=== PATIENT | female | born 1960 | race Caucasian/White ===

== ENCOUNTER 2019-12-27 08:30 | Outpatient (RCR) | payer OTHER, SELFPAY ==
--- NOTE | 2019-11-29 11:46 | PTOPEVAL ---
Thank you for referring this patient to [facility]. Please review, sign, date and return this plan of care BRAYAN. Pt seen for physical therapy this date following bilateral foot surgery. She demonstrates leg weakness, decreased joint range, increased pain and impaired performance with functional mobility. She requires additional skilled PT 3x/wk x 3k to achieve therapy goals. I agree with and certify that the following plan of care is medically necessary. Referring Physician Date Attending Provider: Vinayak Shaikh DPM Referring Provider: JasmeetPT Outpatient Evaluation Start: 11/29/19 08:53 Freq: Status: Active Protocol: Document 11/29/19 08:44 CAP (Rec: 11/29/19 09:47 CAP [id number]) Therapy Assessment Status Assessment Status Assessment Status Evaluation Outpatient Past Medical History Cardiovascular History Hx Hypertension Yes Respiratory History Hx Asthma Yes Gastrointestinal History Hx Other Gastrointestinal Disorders Yes: gastritis Genitourinary History Hx Genitourinary Disorders No Significant History Musculoskeletal History Hx Other Musculoskeletal Disorders Yes: nishant foot surgery Endocrine History Hx Endocrine Disorders No Significant History Evaluation Information Problem Diagnosis right foot surgery Onset 10/04 Cause hammer toe nishant Additional Evaluation Detail bunionectomy 10/04 on right s/p placement of 3 screws on left great toe and 1st ray s/p placement of 4 screws on right great toe and 1st ray She received therapy for right hip bursitis 1 year ago. Subjective Information Pt has undergone 2 surgeries Query Text:As Reported By Patient/ on right foot and 1 surgery on Family left foot for bunionecotomy and great toe/1st ray fusion. She would like her great toe to touch the ground again. She has not had her toes touch the ground since 12/04. STates her great toe looks high . She has never received therapy for her feet following multiple surgeries. She reports limitations with walking, standing and negotiating steps. States she performs passive stretching to her toes. S
--- NOTE | 2019-12-27 09:21 | PTOPEVAL ---
Thank you for referring this patient to [facility]. Please review, sign, date and return this plan of care BRAYAN. Pt has been seen for 9 physical therapy visits to address nishant foot impairments related to foot surgery. She demonstrates progress with LE strength, ankle and toe motion, improved walking endurance on 2 MWT. She is progressing towards her therapy goals. She requires additional skilled therapy 2x/wk x 4 wk to achieve remaining therapy goals and achieve maximal potential and benefit with therapy. I agree with and certify that the following plan of care is medically necessary. Referring Physician Date Attending Provider: Vinayak Shaikh DPM Referring Provider: JasmeetPT Outpatient Evaluation Start: 11/29/19 08:53 Freq: Status: Active Protocol: Document 12/27/19 08:32 CAP (Rec: 12/27/19 09:20 CAP [id number]) Therapy Assessment Status Assessment Status Assessment Status Re-evaluation Outpatient Past Medical History Cardiovascular History Hx Hypertension Yes Respiratory History Hx Asthma Yes Gastrointestinal History Hx Other Gastrointestinal Disorders Yes: gastritis Genitourinary History Hx Genitourinary Disorders No Significant History Musculoskeletal History Hx Other Musculoskeletal Disorders Yes: nishant foot surgery Endocrine History Hx Endocrine Disorders No Significant History Evaluation Information Problem Diagnosis right foot surgery Onset 10/04 Additional Evaluation Detail bunionectomy 10/04 on right s/p placement of 3 screws on left great toe and 1st ray s/p placement of 4 screws on right great toe and 1st ray She received therapy for right hip bursitis 1 year ago. Subjective Information Pt reports she continues to Query Text:As Reported By Patient/ have severe pain of nishant feet Family with standing and walking. Reports the toes on her right foot are moving better. States the scar can be sore and painful at times. She feels more balance with walking. She is able to stand longer for activities, but cont to have pain with increased walking. Denies any problems with steps. Reports no problems with her HEP and consistently performing. Pain Assessment Timing of Pain Assessment Timing of Pain Assessment
--- NOTE | 2020-01-02 08:42 | PCPTNOTE ---
Patient called & cancelled scheduled appointment this date due to insurance change.
--- NOTE | 2020-02-06 12:48 | PCPTNOTE ---
Admitting Provider: Attending Provider: Vinayak Shaikh DPM Patient:Unique Quiles Date of :1960 Patient has not returned for any further treatments since 12/27/2019, therefore she will be discharged from therapy at this time. She was seen for 9 therapy visits from 11/29/19-01/02/20. She cancelled her therapy visits due to insurance changes. The goals have been partially achieved. Thank you for referring this patient to [facility]. Please review, sign, date and return this discharge summary BRAYAN. I have been updated about the patient's current status and I agree with discharge from the above service at this time. Referring Physician Date
== END 2020-02-06 13:55 | disposition home or self-care (01) ==
LOC: ANHPT 08:30
PROVIDERS: PCP Internal Medicine; Visit Provider Podiatrist Foot & Ankle Surgery
DX: Z47.89 Encounter for other orthopedic aftercare (principal)
CPT/HCPCS: 97022; 97110; 97140; 97162; 97530

== ENCOUNTER → 2020-02-06 07:13 | Outpatient (CLI) | payer OTHER, SELFPAY ==
--- NOTE | ~2020-02-06 | MM_ITS ---
EXAMINATION: MM screening favio BI w sharda HISTORY: Screening mammogram TECHNIQUE: Craniocaudal and mediolateral oblique 3-D tomosynthesis images were obtained and synthetic 2-D images were generated. CAD analysis was submitted and interpreted. COMPARISON: 01/31/2019, 01/28/2018,01/21/2017 bilateral digital screening mammogram examinations BREAST PARENCHYMAL COMPOSITION: The breasts are almost entirely fatty. FINDINGS: There is no evidence of suspicious mass, calcification, or architectural distortion to sugg est malignancy in either breast. There has been no suspicious interval change. IMPRESSION: 1. No mammographic evidence of malignancy. 2. Recommend routine screening mammography in one year. BI-RADS Category 1: Negative Reviewed, dictated and finalized at location A.
== END ==
PROVIDERS: Visit Provider Nurse Practitioner
DX: Z12.31 Encounter for screening mammogram for malignant neoplasm of breast (principal)
CPT/HCPCS: 77063; 77067

== ENCOUNTER → 2020-08-02 09:45 | Outpatient (CLI) | payer MEDICARE, SELFPAY ==
--- NOTE | ~2020-08-02 | MR_ITS ---
EXAMINATION: MR knee RT wo con DATE: 08/02/2020 10:51 INDICATION: Right knee pain TECHNIQUE: Magnetic resonance imaging (MRI) of the right knee was performed without intravenous contr ast. Sequences included coronal PD-weighted FSE, coronal PD-weighted FS FSE, sagittal T2-weighted FS E, sagittal PD-weighted FS FSE and axial PD weighted fat saturated FSE. COMPARISON: None. FINDINGS: Medial compartment: Medial meniscus is normal. Partial-thickness chondral fissure without degenerative subarticular casas es along the lateral side of the anterior weightbearing medial femoral condyle. Deep fissuring with m inimal subarticular edema at the posterior weightbearing medial femoral condyle. Lateral compartment: Lateral meniscus is normal. Deep chondral fissures with tiny foci of subarticular edema at the medial side of the lateral tibial plateau extending onto the shoulder the intercondylar eminence and the ju xtaposed anterior weightbearing lateral femoral condyle. Patellofemoral compartment: Deep chondral fissuring and ulceration at the cephalad aspect of the medial patellar facet and patell ar apical ridge complex lateral with minimal subarticular edema. Chondral ulceration and fissuring al chidi the trochlear groove which is deep at the inferior aspect of the greater groove as well as at the inferolateral aspect of the lateral trochlea with associated small central subchondral osteophytes. Ligaments and tendons: Anterior and posterior cruciate ligaments are normal. The medial collateral ligament and fibular michael ateral ligament complex are normal. Patellar tendon is normal. Mild distal quadriceps tendinopathy wi thout discrete tear. The visualized medial and lateral hamstring tendons as well as the iliotibial ba nd are normal. Fluid: Physiologic amount of fluid in the joint space. No loose osteochondral bodies identified. Osseous/other: Bone alignment is normal. No fracture or pathologic marrow replacing process. IMPRESSION: 1. 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 2. Mild distal quadriceps tendinopathy. Reviewed, dictated and finalized at location A. IMPRESSION: 1. 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 2. Mild distal quadriceps tendinopathy.
== END ==
PROVIDERS: PCP Internal Medicine; Visit Provider Nurse Practitioner Family
DX: M25.561 Pain in right knee (principal); M17.11 Unilateral primary osteoarthritis, right knee; M94.261 Chondromalacia, right knee; S76.111A Strain of right quadriceps muscle, fascia and tendon, initial encounter
CPT/HCPCS: 73721

== ENCOUNTER → 2020-09-14 10:05 | Outpatient (CLI) | payer MEDICARE, SELFPAY ==
--- NOTE | ~2020-09-14 | XR_ITS ---
XR foot LT min 3V DATE: 09/14/2020 10:30 INDICATION: Left foot pain TECHNIQUE: 4 views COMPARISON: None FINDINGS: Pes planus. Postoperative changes including 2 screws of the first metatarsal bone and a tra nsverse screw through the midportion of the proximal phalanx of first digit; surgical repair of hallu x valgus and bunion deformity. (Posterior calcaneal enthesopathy. No fracture, dislocation, periosteal reaction or bone destruction. IMPRESSION: Postoperative changes Pes planus Calcaneal enthesopathy Reviewed, dictated and finalized at location A.
== END ==
PROVIDERS: PCP Internal Medicine; Visit Provider Nurse Practitioner
DX: M79.672 Pain in left foot (principal); M77.32 Calcaneal spur, left foot; M21.42 Flat foot [pes planus] (acquired), left foot
CPT/HCPCS: 73630

== ENCOUNTER → 2021-01-31 11:59 | Outpatient (CLI) | payer MEDICARE, SELFPAY ==
--- NOTE | ~2021-01-31 | XR_ITS ---
EXAMINATION: XR chest 2V DATE: 01/31/2021 12:23 INDICATION: Shortness of breath. TECHNIQUE: Frontal and lateral views of the chest were obtained. COMPARISON: Chest 2 views 03/15/2019 FINDINGS: The chest demonstrates clear lungs without pneumonia, pleural effusion, or pneumothorax. Th e heart size is normal. IMPRESSION: 1. No acute cardiopulmonary disease. Reviewed, dictated and finalized at location A.
== END ==
PROVIDERS: PCP Internal Medicine; Visit Provider Nurse Practitioner
DX: R06.02 Shortness of breath (principal)
CPT/HCPCS: 71046

== ENCOUNTER 2021-02-13 09:08 | Outpatient (CLI) | payer MEDICARE, SELFPAY ==
--- NOTE | 2021-02-13 09:25 | EST_ITS ---
Patient Info Name: Unique Quiles Age: 60 years : 1960 Gender: Female Ht: 62 in Wt: 180 lbs BSA: 1.92 m2 HR: 70 bpm BP: 160 / 87 mmHg Heart Rhythm: Sinus Rhythm Exam Date: 02/13/2021 9:53 AM Exam Location: [facility] Patient Status: Outpatient Admit Date: 02/13/2021 Staff Ordering Physician: Hannah Figueroa Home Support Worker: Lyric Swan RDCS Attending Provider: Hannah Figueroa Referring Physician: Carolina SEYMOUR; Exercise Technologist: Maame Mireles CT Exercise Physician: Nathan Medina DO Exam Type: CA stress echo Study Info Indications R06.02 - Shortness of breath Treadmill exercise stress echocardiogram is performed. Summary 1. 1. Negative Jaskaran exercise stress test for ischemic ST changes by ECG criteria. 2. 2. Mildly reduced functional capacity, achieving 7 METs of workload. 3. 3. Baseline hypertension. 4. 4. Appropriate HR response to exercise. 5. 5. Appropriate HR recovery at 1 minute post exercise. 6. 6. Negative stress echocardiogram for ischemia by wall motion analysis. 7. 7. Patient informed of the above results. Stress Echo Findings Left Ventricle Appropriate increase in LV endocardial thickening with systole. Appropriate augmentation of contractility with systole. No wall motion abnormality. Left Ventricle Normal LV systolic function, no wall motion abnormality. Protocol: Jaskaran Stress ECG Details Stage: REST Duration (min): 1 min : 50 sec Speed (mph): 0.0 Grade (%): 0 HR (bpm): 68 SBP (mmHg): 160 DBP (mmHg): 87 METS: --- Stage: REST Duration (min): 14 min : 1 sec Speed (mph): 0.0 Grade (%): 0 HR (bpm): 76 SBP (mmHg): 160 DBP (mmHg): 87 METS: --- Stage: STAGE 1 Duration (min): 1 min : 0 sec Speed (mph): 1.7 Grade (%): 10 HR (bpm): 101 SBP (mmHg): 160 DBP (mmHg): 87 METS: --- Stage: STAGE 1 Duration (min): 2 min : 0 sec Speed (mph): 1.7 Grade (%): 10 HR (bpm): 114 SBP (mmHg): 160 DBP (mmHg): 87 METS: --- Stage: STAGE 1 Duration (min): 3 min : 0 sec Speed (mph): 1.7 Grade (%): 10 HR (bpm): 120 SBP (mmHg): 171 DBP (mmHg): 83 METS: --- Stage: STAGE 2 Duration (min): 1 min : 0 sec Speed (mph): 2.5 Grade (%): 12 HR (bpm): 138 SBP (mmHg): 171 DBP (mmHg): 83 METS: --- Stage: STAGE 2 Duration (min): 2 min : 0 sec Speed (mph): 2.5 Grade (%): 12 HR (bpm): 143 SBP (mmHg): 166 DBP (mmHg): 84 METS: --- Stage: STAGE 2 Duration (min): 3 min : 0 sec Speed (mph): 2.5 Grade (%): 12 HR (bpm): 147 SBP (mmHg): 166 DBP (mmHg): 84 METS: --- Stage: STAGE 3 Duration (min): 0 min : 3 sec Speed (mph): 0.0 Grade (%): 0 HR (bpm): 147 SBP (mmHg): 166 DBP (mmHg): 84 METS: --- Stage: RECOVERY Duration (min): 0 min : 56 sec Speed (mph): 0.0 Grade (%): 0 HR (bpm): 108 SBP (mmHg): 190 DBP (mmHg): 81 METS: --- ---------
== END 2021-02-13 09:09 | disposition home or self-care (01) ==
PROVIDERS: PCP Internal Medicine; Visit Provider Nurse Practitioner
DX: R06.02 Shortness of breath (principal)
CPT/HCPCS: 93351

== ENCOUNTER → 2021-02-14 10:44 | Outpatient (CLI) | payer MEDICARE, SELFPAY ==
--- NOTE | ~2021-02-14 | DEXA_ITS ---
Bone Density Report Name: Unique Quiles Age: 60 Sex: Female Ethnicity: White Date of : 1960 Indication: postmenopausal; screening for osteoporosis; asthma or emphysema; Referring Provider: Yair, Annette Study: Bone densitometry was performed. Exam Date: February 14, 2021 Accession number: [id number] Bone Density: Region BMD T-score Z-score Classification AP Spine (L1-L4) 1.036 -0.1 1.3 Normal Femoral Neck (Left) 0.775 -0.7 0.6 Normal Total Hip (Left) 0.967 0.2 1.1 Normal Femoral Neck (Right) 0.819 -0.3 1.0 Normal Total Hip (Right) 0.984 0.3 1.3 Normal Total Hip Mean 0.976 0.3 1.2 Normal World Health Organization criteria for BMD impression classify patients as: Normal (T-score at or above -1.0), Osteopenia (T-score between -1.0 and -2.5), or Osteoporosis (T-score at or below -2.5). 10-year Fracture Risk: FRAX not reported because: All T-scores for Spine Total, Hip Total, Femoral Neck at or above -1.0 Previous Exams: Region Exam Age BMD T-score BMD Change BMD Change Date g/cm2 vs Baseline vs Previous AP Spine(L1-L4) 02/14/2021 60 1.036 -0.1 -0.062* -0.046* 12/18/2016 56 1.082 0.3 -0.016 -0.016 12/15/2013 53 1.098 0.5 Total Hip(Left) 02/14/2021 60 0.967 0.2 -0.013 -0.060* 12/18/2016 56 1.026 0.7 0.046* 0.046* 12/15/2013 53 0.980 0.3 Total Hip(Right) 02/14/2021 60 0.984 0.3 -0.070* -0.059* 12/18/2016 56 1.043 0.8 -0.011 -0.011 12/15/2013 53 1.054 0.9 *Denotes significance at 95% confidence level, LSC for AP Spine = 0.022 g/cm2, LSC for Total Hip = 0.027 g/cm2 Clinical Information Provided by Patient: Has used the following medications: Vitamin D Has the following medical conditions: Asthma or Emphysema Patient maximum height was 62 Menopause Age: 53 Onset of menses at age 18 Number of children 1 Impression: The patient has normal bone mass. The BMD for the AP Spine(L1-L4) decreased, changing by -0.046 since the last DXA exam. The BMD for the Total Hip(Left) decreased, changing by -0.060 since the last DXA exam. The BMD for the Total Hip(Right) decreased, changing by -0.059 since the last DXA exam. Discussion: BONE DENSITY IS ABOVE THE MINIMUM DESIRABLE LEVEL AT ALL SKELETAL SITES TESTED. This patient?s bone mineral density is above the minimum desirable level (T-score -1.0 o
--- NOTE | ~2021-02-14 | MM_ITS ---
EXAMINATION: MM screening [facility] BI w sharda HISTORY: Screening mammogram TECHNIQUE: Craniocaudal and mediolateral oblique 3-D tomosynthesis images were obtained and synthetic 2-D images were generated. CAD analysis was submitted and interpreted. COMPARISON: 02/06/2020, 01/31/2019, 01/28/2018 BREAST PARENCHYMAL COMPOSITION: The breasts are almost entirely fatty. FINDINGS: There is no evidence of suspicious mass, calcification, or architectural distortion to sugg est malignancy in either breast. There has been no suspicious interval change. IMPRESSION: 1. No mammographic evidence of malignancy. 2. Recommend routine screening mammography in one year. BI-RADS Category 1: Negative Reviewed, dictated and finalized at location A.
== END ==
PROVIDERS: Visit Provider Nurse Practitioner
DX: Z12.31 Encounter for screening mammogram for malignant neoplasm of breast (principal); Z78.0 Asymptomatic menopausal state
CPT/HCPCS: 77063; 77067; 77080

== ENCOUNTER 2021-04-08 08:57 | Outpatient (CLI) | payer MEDICARE, SELFPAY ==
--- NOTE | 2021-04-22 14:50 | WPDHOMESLEEP ---
Sleep Study - Home Unattended Date of Study: 04/08/21 Ordering Provider: MOIRA SteinerC Interpreting Provider: Lynn Bhardwaj MD [place] Sleep Study Type: Apnea Link Air Height: 1.57 m Weight: 81.647 kg Body Mass Index: 32.9 Neck Circumference (inches): 13.25 [place]: 2 Reason for Sleep Study Fatigue, need for naps Sleep History Unique Quiles is a 60 year old female with loud snoring at night. She is fatigued throughout the day and could easily nap. At her last pulmonary office visit in October 2020, she denied excessive daytime sleepiness. she has difficulty falling asleep, she wakes throughout the night including the back hand hours. She occasionally awakens from sleep feeling short of breath. She takes trazodone to initiate sleep. She frequently awakens at night with heartburn, belching or coughing. She frequently snores and occasionally her snoring is loud enough that others complain about it. She frequently has trouble sleep with a cold. She occasionally wakes up gasping for breath at night. She rarely has breathing problems observed at night. She does not sweat excessively at night. She frequently notices her heart pounding or beating irregularly at night. She does not fall asleep during the day, she does not fall asleep involuntarily and she does not fall asleep while driving. She rarely has loss of muscle tone with strong emotion. She does not have daytime difficulties due to excessive sleepiness. She does not feel paralyzed on waking or falling asleep. She does not have vivid dreamlike scenes upon awakening or falling asleep. She does not feel afraid to go to sleep. She rarely has nightmares. She occasionally remembers her dreams. She occasionally has racing thoughts. She occasionally has feelings of sadness, depression, and anxiety. She rarely has muscular tension. She does not notice parts of her body jerking. She rarely kicks at night. She does not have crawling and aching feelings in her legs and does not have any kind of leg pain at night. She occasionally has morning jaw pain. She occasionally grinds her teeth during sleep. She rarely is bothered by pain during the day. She occasionally has awakened by pain at night. She occasionally wakes up feeling stiff in the morning. She rarely wakes up with sore or achy muscles. She occasionally wakes up with pain in the neck and spine. She has headaches, palpitations, bowel disturbances, fatigue and memory problems. She sometimes has concentration difficulties. Normal bedtime is between 6:00 p.m. and 7:00 p.m., falling asleep quickly at times, and other days taking as long as 3 hours to fall asleep. She typically wakes 2 or 3 times at night. She will go to the bathroom, come back to bed and reposition. These awakenings occur soon after falling asleep, in the middle of the night as well as in the back hand hours. On average, she stays awake between 3 and 4 hours. She wakes in the morning between 6 and 7:00 a.m.. She estimates getting 8-9 hours of sleep at night. She does not take naps. Short naps are not refreshing. She is usually drowsy in the morning for 2 hours or longer. She feels better in the morning compared other times of day. Habits: Never smoked tobacco. No caffeine, alcohol or recreational drugs. [facility] Past Medical History Medical History Biceps tendonitis on left Bursitis of left elbow Colon cancer screening Degenerative joint disease of knee Depression Essential (primary) hypertension Gastro-esophageal reflux disease without esophagitis GERD (gastroesophageal reflux disease) Hoarseness Hypertension IBS (irritable bowel syndrome) Lateral epicondylitis of elbow Left shoulder pain Medial meniscus tear Mild intermittent asthma with exacerbation Nausea Osteoporosis Postmenopausal Rotator cuff tendonitis Screening for breast cancer Stroke-like symptoms Trochanteric bursit
[2021-04-22 15:13] VITALS: BMI 32.9
== END 2021-04-09 08:48 | disposition home or self-care (01) ==
LOC: ANHCSM 04-09 08:57
PROVIDERS: PCP Internal Medicine; Visit Provider Nurse Practitioner
DX: G47.33 Obstructive sleep apnea (adult) (pediatric) (principal); Z72.821 Inadequate sleep hygiene
CPT/HCPCS: 95806

== ENCOUNTER 2021-05-17 08:49 | Outpatient (CLI) | payer MEDICARE, SELFPAY ==
--- NOTE | 2021-06-09 21:27 | WPDSLEEPSTUD ---
Sleep Study Date of Study: 05/17/21 Ordering Provider: JEANNETTE Steiner Interpreting Physician: Lynn Bhardwaj MD Sleep Study Type: CPAP Titration Height: 1.57 m Weight: 81.647 kg Body Mass Index: 32.9 Neck Circumference (inches): 14 [place]: 1 Reason for Sleep Study Home Sleep Test April 08, 2021 showing mild obstructive sleep apnea AHI 13.3, desaturation 83%, equal numbers central and obstructive events, now presents for CPAP titration. Sleep History Unique Quiles is a 60 year old female with loud snoring at night. She is fatigued throughout the day and could easily nap. At her last pulmonary office visit in October 2020, she denied excessive daytime sleepiness. she has difficulty falling asleep, she wakes throughout the night including the slag dumper hours. She occasionally awakens from sleep feeling short of breath. She takes trazodone to initiate sleep. She frequently awakens at night with heartburn, belching or coughing. She frequently snores and occasionally her snoring is loud enough that others complain about it. She frequently has trouble sleep with a cold. She occasionally wakes up gasping for breath at night. She rarely has breathing problems observed at night. She does not sweat excessively at night. She frequently notices her heart pounding or beating irregularly at night. She does not fall asleep during the day, she does not fall asleep involuntarily and she does not fall asleep while driving. She rarely has loss of muscle tone with strong emotion. She does not have daytime difficulties due to excessive sleepiness. She does not feel paralyzed on waking or falling asleep. She does not have vivid dreamlike scenes upon awakening or falling asleep. She does not feel afraid to go to sleep. She rarely has nightmares. She occasionally remembers her dreams. She occasionally has racing thoughts. She occasionally has feelings of sadness, depression, and anxiety. She rarely has muscular tension. She does not notice parts of her body jerking. She rarely kicks at night. She does not have crawling and aching feelings in her legs and does not have any kind of leg pain at night. She occasionally has morning jaw pain. She occasionally grinds her teeth during sleep. She rarely is bothered by pain during the day. She occasionally has awakened by pain at night. She occasionally wakes up feeling stiff in the morning. She rarely wakes up with sore or achy muscles. She occasionally wakes up with pain in the neck and spine. She has headaches, palpitations, bowel disturbances, fatigue and memory problems. She sometimes has concentration difficulties. Normal bedtime is between 6:00 p.m. and 7:00 p.m., falling asleep quickly at times, and other days taking as long as 3 hours to fall asleep. She typically wakes 2 or 3 times at night. She will go to the bathroom, come back to bed and reposition. These awakenings occur soon after falling asleep, in the middle of the night as well as in the slag dumper hours. On average, she stays awake between 3 and 4 hours. She wakes in the morning between 6 and 7:00 a.m.. She estimates getting 8-9 hours of sleep at night. She does not take naps. Short naps are not refreshing. She is usually drowsy in the morning for 2 hours or longer. She feels better in the morning compared other times of day. Habits: Never smoked tobacco. No caffeine, alcohol or recreational drugs. [facility] Past Medical History Medical History Biceps tendonitis on left Bursitis of left elbow Colon cancer screening Degenerative joint disease of knee Depression Essential (primary) hypertension Gastro-esophageal reflux disease without esophagitis GERD (gastroesophageal reflux disease) High cholesterol Hoarseness Hypertension IBS (irritable bowel syndrome) Lateral epicondylitis of elbow Left shoulder pain Medial meniscus tear Metatarsalgia of left foot Mild i
[2021-06-09 21:31] VITALS: BMI 32.9
== END 2021-05-18 08:00 | disposition home or self-care (01) ==
PROVIDERS: PCP Internal Medicine; Visit Provider Nurse Practitioner
DX: G47.33 Obstructive sleep apnea (adult) (pediatric) (principal)
CPT/HCPCS: 95811

== ENCOUNTER 2022-02-17 00:22 | Day surgery (SDC) | payer MEDICARE, SELFPAY ==
[2022-02-06 11:58] VITALS: BMI 34.9
[2022-02-17 10:14] VITALS: BP 141/82; PULSE 99; RESP 18; TEMP 35.8; O2SAT 99
[2022-02-17] MEDS: LACTATED RINGERS 1,000 ML 150 ML IV CONT (10:25)
--- NOTE | 2022-02-17 10:59 | PM.HPGS ---
History of Present Illness History of Present Illness Consent: Risks, benefits, and alternatives have been discussed and questions answered. Patient agrees to proceed with procedure. Chief complaint: neoplasm screening Narrative: Unique Quiles is a 61 year old female here for screening colonoscopy, last one 10 years ago Review of Systems Constitutional: Constitutional: Denies headache(s) and Denies weakness Eyes: Eyes: Denies blurry vision ENT: Reports Normal hearing present, Denies headache(s) and Denies neck pain Cardiovascular: Cardiovascular: Denies chest pain and Denies dyspnea Respiratory: Respiratory: Denies dyspnea Gastrointestinal: Gastrointestinal: Reports no additional gastrointestinal complaints Genitourinary: Genitourinary: Denies dysuria Musculoskeletal: Musculoskeletal: Denies neck pain Integumentary/Breasts: Skin/Breast: Denies dry skin Neurologic: Reports Normal hearing present, Denies headache(s) and Denies weakness Psychiatric: Psychiatric: Denies anxiety Endocrine: Endocrine: Denies change in body appearance Hematologic/Lymphatic: Hematologic/Lymphatic: Denies easy bleeding Allergic/Immunologic: Allergic/Immunologic: Denies urticaria PMFSH Past Medical History Medical History (Updated 01/16/22 @ 11:18 by Lavonne Oakes) Biceps tendonitis on left Bursitis of left elbow Colon cancer screening Degenerative joint disease of knee Depression Essential (primary) hypertension Gastro-esophageal reflux disease without esophagitis GERD (gastroesophageal reflux disease) High cholesterol Hoarseness Hypertension IBS (irritable bowel syndrome) Lateral epicondylitis of elbow Left shoulder pain Medial meniscus tear Metatarsalgia of left foot Mild intermittent asthma with exacerbation Nausea Osteoporosis Postmenopausal Right shoulder tendonitis Rotator cuff tendonitis Screening for breast cancer Stomach ulcer Stroke-like symptoms Trochanteric bursitis Trochanteric bursitis, left hip Trochanteric bursitis, right hip Trochanteric bursitis, right hip Vision abnormalities Wears glasses Surgical History Surgical History History of foot surgery November, July, and September 2019 Family History Family History Mother Hypertension, Onset Age: 86 Family history of elevated blood lipids Family history of hypothyroidism Family history of diabetes mellitus in first degree relative Family history of congestive heart failure Diabetes mellitus, Onset Age: 86 Father Patient's father is Other Arthritis Cerebrovascular accident Family history of cardiovascular disease Heart disease Social History Social History Smoking status: Never smoker Second hand tobacco smoke exposure: No Alcohol intake: never Substance use: never Substance use type: does not use Living arrangements: with family Gender identity (if verbalized by the patient): Female Spiritual care concerns: No Meds Home Medications and Allergies Home Medications Medication Instructions Recorded Confirmed Type aspirin 81 mg tablet,delayed 81 mg PO DAILY 12/21/19 02/17/22 History release cetirizine 10 mg capsule 10 mg PO DAILY 12/21/19 02/17/22 History cholecalciferol (vitamin D3) 100 4,000 unit PO DAILY 12/21/19 02/17/22 History mcg (4,000 unit) capsule omega-3 fatty acids 1,000 mg 1,000 mg PO DAILY 12/21/19 02/17/22 History capsule ondansetron HCl 4 mg tablet 4 mg PO Q8H 90 Days #270 tablet 03/06/21 02/17/22 Rx lactulose 10 gram/15 mL oral 10 g PO BID PRN #946 ml 03/25/21 02/17/22 Rx solution albuterol sulfate 90 mcg/actuation 1 - 2 inh INHALATION Q4-6H PRN 09/11/21 02/17/22 Rx aerosol inhaler #8.5 g atorvastatin 20 mg tablet 20 mg PO DAILY #90 tablet 09/12/21 02/17/22 Rx epinephrine 0.3 mg/0.3 mL 0.3 mg I
[2022-02-17 11:19] VITALS: BP 95/52; PULSE 86; RESP 20; O2SAT 96
[2022-02-17 11:29] VITALS: BP 112/56; PULSE 80; RESP 20; O2SAT 98
[2022-02-17 11:39] VITALS: BP 123/54; PULSE 72; RESP 20; O2SAT 99
== END 2022-02-17 11:50 | disposition home or self-care (01) ==
PROVIDERS: PCP Internal Medicine; Visit Provider Internal Medicine Gastroenterology
PROC: 0DJD8ZZ Inspection of Lower Intestinal Tract, Via Natural or Artificial Opening Endoscopic (ICD-10-PCS; CPT 45378; principal; 2022-02-17 11:30)
DX: Z12.11 Encounter for screening for malignant neoplasm of colon (principal); K63.5 Polyp of colon; I10 Essential (primary) hypertension; E78.00 Pure hypercholesterolemia, unspecified; M81.0 Age-related osteoporosis without current pathological fracture; K21.9 Gastro-esophageal reflux disease without esophagitis; F32.9 Major depressive disorder, single episode, unspecified; K58.9 Irritable bowel syndrome, unspecified; J45.20 Mild intermittent asthma, uncomplicated; Z79.82 Long term (current) use of aspirin; Z79.51 Long term (current) use of inhaled steroids
CPT/HCPCS: 45385; 88305; J2704; J7120

== ENCOUNTER → 2022-02-21 10:07 | Outpatient (CLI) | payer MEDICARE, SELFPAY ==
--- NOTE | ~2022-02-21 | MM_ITS ---
EXAMINATION: MM screening favio BI w sharda HISTORY: Screening TECHNIQUE: Craniocaudal and mediolateral oblique 3-D tomosynthesis images were obtained and synthetic 2-D images were generated. CAD analysis was submitted and interpreted. COMPARISON: Comparison to multiple prior studies sequentially, with oldest reviewed study dated 06/13. BREAST PARENCHYMAL COMPOSITION: The breasts are almost entirely fatty. FINDINGS: There is no evidence of suspicious mass, calcification, or architectural distortion to sugg est malignancy in either breast. There has been no suspicious interval change. IMPRESSION: 1. No mammographic evidence of malignancy. 2. Recommend routine screening mammography in one year. BI-RADS Category 1: Negative Reviewed, dictated and finalized at location A.
== END ==
PROVIDERS: PCP Internal Medicine; Visit Provider Obstetrics & Gynecology Gynecology
DX: Z12.31 Encounter for screening mammogram for malignant neoplasm of breast (principal)
CPT/HCPCS: 77063; 77067

== ENCOUNTER → 2022-05-29 13:10 | Outpatient (CLI) | payer MEDICARE, SELFPAY ==
--- NOTE | ~2022-05-29 | XR_ITS ---
XR sacrum coccyx min 2V DATE: 05/29/2022 13:29 INDICATION: Localized swelling, mass and lump, trunk TECHNIQUE: AP, angled AP and lateral views of sacrum and coccyx COMPARISON: 07/15/2021 pelvis and right hip FINDINGS: The pubic symphysis and sacroiliac joints are intact. No erosive change or ankylosis, fract ure, dislocation or significant degenerative change at the sacroiliac joints. No sacral or coccygeal fracture or bone destruction is detected. L4-5 and L5-S1 interspaces appear relatively preserved. IMPRESSION: No significant abnormality of sacrum or coccyx Reviewed, dictated and finalized at location A.
== END ==
PROVIDERS: PCP Internal Medicine; Visit Provider Nurse Practitioner
DX: R22.2 Localized swelling, mass and lump, trunk (principal)
CPT/HCPCS: 72220

== ENCOUNTER → 2022-05-31 11:22 | Outpatient (CLI) | payer MEDICARE, SELFPAY ==
--- NOTE | ~2022-05-31 | US_ITS ---
EXAMINATION: US soft tissue buttock LT DATE: 05/31/2022 11:50 INDICATION: Localized swelling, mass or lump in trunk. TECHNIQUE: Grayscale and Doppler ultrasound images of the left buttock were obtained. COMPARISON: None. FINDINGS: Area of clinical concern was interrogated sonographically. No cystic or solid abnormality. IMPRESSION: 1. No sonographic abnormality in the area of clinical concern. Reviewed, dictated and finalized at location K.
== END ==
PROVIDERS: PCP Internal Medicine; Visit Provider Nurse Practitioner
DX: R22.2 Localized swelling, mass and lump, trunk (principal)
CPT/HCPCS: 76705

== ENCOUNTER → 2023-02-25 12:43 | Outpatient (CLI) | payer OTHER, SELFPAY ==
--- NOTE | ~2023-02-25 | XR_ITS ---
XR lumbar spine min 4V 02/25/2023 13:04 Indication: Low back pain Procedure: 5 views lumbar spine Comparison: No prior studies for comparison. Findings: Mild chronic wedge deformity of T12. Mild disc narrowing at L4-5. There is facet hypertroph y at L4-5 and L5-S1. No fracture or traumatic malalignment. There is dextroscoliosis centered at L3. Impression: 1: Mild lumbar spondylosis with dextroscoliosis. Reviewed, dictated and finalized at location B. Impression: 1: Mild lumbar spondylosis with dextroscoliosis.
== END ==
PROVIDERS: PCP Family Medicine; Visit Provider Physician Assistant Medical
DX: G89.29 Other chronic pain (principal); M54.41 Lumbago with sciatica, right side; M43.06 Spondylolysis, lumbar region; M41.86 Other forms of scoliosis, lumbar region
CPT/HCPCS: 72110

== ENCOUNTER → 2023-04-14 16:12 | Outpatient (CLI) | payer OTHER, SELFPAY ==
--- NOTE | ~2023-04-14 | MM_ITS ---
EXAMINATION: MM screening favio BI w sharda HISTORY: Screening mammogram TECHNIQUE: Craniocaudal and mediolateral oblique 3-D tomosynthesis images were obtained and synthetic 2-D images were generated. CAD analysis was submitted and interpreted. COMPARISON: February 21, 2022, February 14, 2021, February 06, 2020 bilateral screening mammogram examinations BREAST PARENCHYMAL COMPOSITION: The breasts are almost entirely fatty. FINDINGS: There is no evidence of suspicious mass, calcification, or architectural distortion to sugg est malignancy in either breast. There has been no suspicious interval change. IMPRESSION: 1. No mammographic evidence of malignancy. 2. Recommend routine screening mammography in one year. BI-RADS Category 1: Negative Reviewed, dictated and finalized at location A.
== END ==
PROVIDERS: PCP Nurse Practitioner; Visit Provider Nurse Practitioner
DX: Z12.31 Encounter for screening mammogram for malignant neoplasm of breast (principal)
CPT/HCPCS: 77063; 77067

== ENCOUNTER 2023-12-02 12:55 | Outpatient (CLI) | payer OTHER, SELFPAY ==
--- NOTE | 2023-12-02 13:04 | ECG_ITS ---
Measurements Intervals [place] Rate: 68 P: 38 NC: 159 QRS: 5 QRSD: 91 T: 7 QT: 364 QTc: 390 Interpretive Statements SINUS RHYTHM VOLTAGE CRITERIA FOR LVH BORDERLINE T WAVE ABNORMALITY- INFERIOR LEADS BASELINE ARTIFACT- I, II, III, AVR, AVL, AVF BORDERLINE ECG COMPARED TO ECG 07/13/2019 07:37:21 NO SIGNIFICANT CHANGES Electronically Signed On 12-02-2023 13:52:34 NEUROPSYCHOLOGY SERVICE DIRECTOR by Nathan Medina D.O.
[2023-12-02 13:18] LABS: Hematocrit 41.7 % (37.0-47.0); Hemoglobin 12.6 g/dL (12.0-15.0)
== END 2023-12-02 12:56 | disposition home or self-care (01) ==
PROVIDERS: Anesthesiology; PCP Family Medicine; Visit Provider Surgery Plastic and Reconstructive Surgery
DX: I10 Essential (primary) hypertension (principal); Z41.1 Encounter for cosmetic surgery
CPT/HCPCS: 36415; 85014; 85018; 93005

== ENCOUNTER 2023-12-08 01:32 | Day surgery (SDC) | payer OTHER, SELFPAY ==
--- NOTE | 2023-11-30 14:14 | PC.NURSE ---
Report to the Outpatient Waiting Room, entrance under the green pavilion located off [facility], at time 6:00 on date 12/08/23. Planned Procedure Time: 7:30. Time changes happen often and if your time is changed the preop area will call you the afternoon before. - You and your visitor will be asked to self-screen and do not enter if you have any COVID symptoms. - A mask is optional within the hospital at this time. Patients may have clear liquids (water, carbonated beverages, clear teas, apple juice) until 3 hours prior to surgery (4:30) with a maximum of 20 ounces. - No food from midnight until time of surgery Take the following medications with a SIP of water the morning of surgery: METOPROLOL, ESCITALOPRAM, INHALERS DO NOT STOP ANY OF YOUR OTHER PRESCRIPTION MEDICATIONS PRIOR TO SURGERY ?EXCEPT THE FOLLOWING Medications to discontinue per physician: VITAMINS/SUPPLEMENTS Date to take last dose: 12/04/23 PT HAS ALREADY STOPPED ASPIRIN Please no make-up, nail luxembourger, hairspray, perfume, deodorant, or body powder the day of surgery. No jewelry (including any body piercings) or valuables the day of surgery, leave them at home. Please take a shower or bath the night before, or the morning of, surgery with an antibacterial soap. Wear comfortable, loose fitting clothing. - Jewelry must be removed prior to entering the operating room. Rings and piercings that are not removed may be cut off. - The hospital will not accept responsibility for valuables. - Please leave all valuables, including medications, at home the day of surgery. If you are going home after surgery, a licensed miniature train driver must drive you home. - NO public transportation without another adult if you receive anesthesia. - We recommend that an adult stay with you for 24 hours following discharge. - We also recommend that you do not drive, make important decision, drink alcoholic beverages, or take any drugs that were not prescribed by your health care provider for at least 24 hours after your discharge time. Follow any additional instructions given to you from your surgeon. If you or anyone in your household have experienced Covid symptoms in the past week, please notify your surgeon or the nurse liaison at the phone number below for possible testing. Telephone instructions given to and asked if any additional questions and then verbalized understanding. Patient advised to call surgeon office or pre surgery nurse liaison [phone] if any additional questions.
[2023-12-08] VITALS (19 sets, daily range): BP systolic 90–146; BP diastolic 47–78; PULSE 72–109; RESP 12–20; TEMP 36.2–36.7; O2SAT 93–99
[2023-12-08] MEDS: LACTATED RINGERS 1,000 ML 30 ML IV CONT ×4 (06:30→17:36)
[2023-12-08 06:44] LABS: Glucose Point of Care 110 mg/dl (65-105)
[2023-12-08 06:47] LABS: Urine Cotinine NEGATIVE
--- NOTE | 2023-12-08 07:16 | WPDANESEPPF ---
Anes - Initial Pre Proc Eval Procedure: Operation Date: 12/08/23 07:30 Proposed Procedures p Abdominoplasty with Liposuction, - Holland Rosas MD s Bilateral Breast Mastopexy with Galaflex - Holland Rosas MD Date/Time: 12/08/23 07:16 Surgeon: Holland Rosas MD Pre Op Diagnosis: breast ptosis, skin laxity Patient Data Age: 63 Gender: F Height: 1.55 m Weight: Allergies Allergy/AdvReac Type Severity Reaction Status Date / Time metformin Allergy Unknown Other Verified 12/08/23 07:13 polymyxin B Allergy Unknown rash Verified 12/08/23 07:13 Home Medications Medication Instructions Recorded Confirmed Type aspirin 81 mg tablet,delayed 81 mg PO DAILY 12/21/19 12/08/23 History release (Adult Aspirin Regimen) cetirizine 10 mg capsule 10 mg PO DAILY 12/21/19 12/08/23 History cholecalciferol (vitamin D3) 100 4,000 unit PO DAILY 12/21/19 12/08/23 History mcg (4,000 unit) capsule omega-3 fatty acids 1,000 mg 1,000 mg PO DAILY 12/21/19 12/08/23 History capsule (Fish Oil Concentrate) epinephrine 0.3 mg/0.3 mL 0.3 mg (0.3 mL) IM ONCE #1 ea 09/12/21 12/08/23 Rx injection, auto-injector vitamin B complex (B 1 tablet PO DAILY 09/12/21 12/08/23 History Complex-Vitamin B12 tablet) vitamin E mixed 400 unit capsule 400 unit PO DAILY 09/12/21 12/08/23 History Breo Ellipta 100 mcg-25 mcg/dose See Rx Instructions .Route 11/26/22 12/08/23 Rx powder for inhalation (fluticasone .COMPLEX 90 days #180 ea furoate-vilanterol) lansoprazole 30 mg capsule,delayed 30 mg PO BID #180 caps 01/16/23 12/08/23 Rx release (Prevacid) lisinopril 10 mg tablet 10 mg PO DAILY #14 tabs 01/27/23 12/08/23 Rx albuterol sulfate 90 mcg/actuation 1 - 2 inh inhalation Q4-6H PRN 05/13/23 12/08/23 Rx aerosol inhaler (ProAir HFA) shortness of breath or wheezing #8.5 grams escitalopram oxalate 20 mg tablet 40 mg PO DAILY #180 tabs 07/08/23 12/08/23 Rx (Lexapro) atorvastatin 20 mg tablet See Rx Instructions .Route 09/23/23 12/08/23 Rx .COMPLEX #100 tabs trazodone 50 mg tablet See Rx Instructions .Route 09/23/23 12/08/23 Rx .COMPLEX #135 tabs metoprolol succinate 25 mg See Rx Instructions .Route 10/05/23 12/08/23 Rx tablet,extended release 24 hr .COMPLEX #90 tabs Lactobacillus 25 billion 1 cap PO DAILY 11/30/23 12/08/23 History cell-Bifido 25 billion [id number] capsule Laboratory Tests 12/08/23 12/08/23 06:07 06:38 POC Capillary Glucose 110 H mg/dl (65-105) Cotinine Negative Patient hx anesthesia problems: post op nausea/vomiting Family hx anesthesia problems: none Results Review: All pre-operative results and documents have been reviewed as part of the pre-operative evaluation. [facility] Past Medical History Medical History Depression Essential (primary) hypertension Gastro-esophageal reflux disease without esophagitis GERD (gastroesophageal reflux disease) High cholesterol Hoarseness IBS (irritable bowel syndrome) Mild intermittent asthma with exacerbation Osteoporosis Pilonidal cyst Postmenopausal Pre-diabetes Surgical History Surgical History History of foot surgery November, July, and September 2019 Family History Family History Mother Hypertension, Onset Age: 86 Family history of elevated blood lipids Family history of hypothyroidism Family history of diabetes mellitus in first degree relative Family history of congestive heart failure Diabetes mellitus, Onset Age: 86 Father Patient's father is Other Arthritis Cerebrovascular accident Family history of cardiovascular disease Heart disease Social History Social History Smoking status: Never smoker Second hand tobacco sm
--- NOTE | 2023-12-08 07:22 | WPDHPUPDATE1 ---
History and Physical Update Update Date/Time: 12/08/23 07:22 History and Physical has been reviewed, including an updated exam of the patient. There are NO changes in the patient's condition. Risks, benefits, and alternatives have been discussed and questions answered. Patient agrees to proceed with procedure.
--- NOTE | 2023-12-08 07:22 | W.PM.PROC2 ---
Procedure Note - Detailed Date of Procedure 12/08/23 Pre-op Diagnosis breast ptosis, skin laxity Post-op Diagnosis Same Procedure Performed Bilateral mastopexy with Galaflex Progressive tension abdominoplasty with suction lipectomy Surgeon Holland Rosas MD Anesthesia General Findings Bilateral inverted T Superior medial pedicle Galaflex REF# [id number] Lipoaspirate: 4,650 cc Tissue removed: 1774 grams Description of Procedure They are here today for the above procedures. Previously and again today the risks, benefits, alternatives were discussed in extensive detail. I wanted them to be very realistic about the risks involved as well as expectations. We discussed aftercare and what to monitor for. I was very upfront about the risks of wound breakdown leading to loss of skin, open wounds, and need for additional procedures with permanent abdominal deformity. We discussed DVT/PE risks and management. We discussed BMI risks and options in great detail to make sure she is well informed. She understands this will not address visceral adiposity. Discussed goal breast volume in great detail. Made sure answered all of their questions to their satisfaction today and consent was obtained. Marked in the preoperative holding area with their verification. The patient was taken to the operating room. Anesthesia was provided by anesthesiology. Posterior Placed prone on the operating room table with care taken to protect from injury. Prepped and draped in a standard sterile fashion. A surgical time-out was taken. Stab incisions were made and tumescent solution was infiltrated. Once adequate time was allowed for hemostasis a 5mm basket and 3mm multi hole cannula were utilized to complete suction lipectomy based on S.A.F.E. technique in multiple planes and passes. Suction lipectomy continued to result based on pre-operative planning, intra-operative observation, and rolling pinch test which were in full agreement. Patient was then placed supine with care taken to protect from injury. Breast Eleven blade was utilized to make a stab incision and infiltrated with low volume tumescent solution. The breast was tailor tacked into place. I tailor tacked the breast into position. Placed her in a sitting position. Verified the nipple-areolar location based on preoperative planning as well as intraoperative observations and measurements in full agreement. She was placed supine. I de-epithelialized the pedicle. I then de-epithelialized the inferior breast tissue to create an autoaugmentation flap based on intercostal hairspring studder. Small volume of flap removed based on preoperative planning. I elevated medial and lateral tissue flaps as well for planned closure. The autoaugmentation flap was sutured to the chest wall with 2-0 PDS. Galaflex was soaking on the back table in betadine solution. Trimmed and sutured into place with 2-0 Vicryl. I closed along the IMF with 2-0 Stratafix. Along the vertical with 2-0 PDS. I closed around the Yuniel with 3-0 strata fix. 3-0 Monocryl along the vertical. 3-0 Stratafix along the IMF. I finally closed everything with running subcuticular 4-0 Monocryl and tissue glue. Abdomen I placed the patient in a flexed position to verify the upper and lower markings would reach. I then placed supine. A thorough abdominal examination was completed. Stab incisions were made and tumescent solution infiltrated. Stab incisions were made and tumescent solution was infiltrated. Once adequate time was allowed for hemostasis a 5mm basket and 3mm multi hole cannula were utilized to complete suction lipectomy based on S.A.F.E. technique in multiple planes and passes. Suction lipectomy continued to result based on pre-operative planning, intra-operative observation, and rolling pinch test which were in full agreement. A 10 blade was used to make the upper incision. I continued dissection down to the level o
[2023-12-08] MEDS: TRANEXAMIC ACID 1,000MG/ISO100 1,000 MG/100 ML BAG 200 MG IVPB (07:25)
[2023-12-08] MEDS: BUPIVACAINE/EPINEPHRINE 0.5% 30 ML VIAL 60 ML INFILTRATE (07:25)
[2023-12-08] MEDS: LACTATED RINGERS IRRIG 1,000 ML, LIDOCAINE HCL 1% LOCAL INJ 50 ML, EPINEPHrine HCL INJ ... INFILTRATE (07:25)
[2023-12-08] MEDS: ceFAZolin 2 GM/D5W 50 ML 2 GM/50 ML BAG IVPB (07:25)
[2023-12-08] MEDS: NACL 0.9% IRRIG POUR BOTTLE 900 ML, GENTAMICIN SULFATE INJ 160 MG, ceFAZolin 2 GM, POVI... IRRIGATION (07:25)
[2023-12-08] MEDS: fentaNYL CITRATE INJ (*CRX) 100 MCG/2 ML VIAL 25 MCG IV PUSH ×2 (15:43→15:54)
[2023-12-08] MEDS: ONDANSETRON INJ 4 MG/2 ML VIAL IV PUSH (16:17)
--- NOTE | 2023-12-08 16:40 | SUR.PHASEII ---
1610 PATIENT LIGHT-HEADED, SLIGHTLY DIAPHORETIC AND NAUSEATED AFTER TRANSFERRING FROM STRETCHER TO RECLINER. RECLINER LOWERED TO 45 DEGREES; COOL COMPRESSES TO FOREHEAD AND NECK; ZOFRAN GIVEN. FAN ON LOW.
[2023-12-08] MEDS: oxyCODONE HCL (*CRX) 5 MG TAB IR PO (17:16)
--- NOTE | 2023-12-08 17:49 | SUR.PHASEII ---
PATIENT STILL C/O'ING FEELING GROGGY.
--- NOTE | 2023-12-08 18:39 | SUR.PHASEII ---
PATIENT C/O'ING DIZZINESS WHEN OPENING HER EYES; NAUSEA RETURNED WHEN SHE SAT UP; BP 103/46. PATIENT HAS RECEIVED [address] REYES CALLED WHO SUGGESTED I CALL DR. SOUZA. DR. SOUZA WILL ADMIT PATIENT. COMMUNICATIONS ATTENDANT NOTIFIED. WILL ADMIT TO ROOM 345.
--- NOTE | 2023-12-08 20:29 | ADMGEN ---
This patient, Unique Quiles, was admitted to Medical Room 345-. Patient/family oriented to hospital policies and general routines including ID bracelet, bed and alarms, visiting hours, pain management, procedures, bathroom and other care routines, personal items, smoking policy, room service/diet, and visiting hours. Information on how to activate the Rapid Response Team has been discussed. Patient/Family are encouraged to report perceived risks to care and to ask questions if they do not understand what they are told or what they should do.
[2023-12-08 20:57] LABS: Estimated CRCL calculation 64 ml/min; Estimated Glomerular Filt Rate > 60
[2023-12-08] MEDS: DOCUSATE SODIUM 100 MG CAPSULE PO (21:12)
[2023-12-08] MEDS: oxyCODONE/ACETAMINOPHEN (*CRX) 5-325 MG TABLET PO (21:12)
[2023-12-08] MEDS: LACTATED RINGERS 1,000 ML 125 ML IV CONT (21:13)
[2023-12-08] MEDS: ENOXAPARIN 40 MG/0.4 ML SYRINGE SUB-Q (21:13)
[2023-12-08] MEDS: KETOROLAC 10 MG TABLET PO (23:44)
[2023-12-08] MEDS: carisoprodoL (*CRX) 350 MG TABLET PO (23:44)
[2023-12-09 00:30] VITALS: BP 97/46; PULSE 106; RESP 16; TEMP 37.2; O2SAT 100
[2023-12-09] MEDS: LACTATED RINGERS 1,000 ML 125 ML IV CONT (03:44)
[2023-12-09 03:52] VITALS: BP 112/53; PULSE 100; RESP 18; TEMP 37.3; O2SAT 93
[2023-12-09] MEDS: carisoprodoL (*CRX) 350 MG TABLET PO ×2 (06:01→12:29)
[2023-12-09] MEDS: KETOROLAC 10 MG TABLET PO ×2 (06:01→12:28)
--- NOTE | 2023-12-09 06:28 | WPDPN ---
Progress Note: A&P Assessment and Plan (1) Encounter for cosmetic surgery: Code(s): Z41.1 - Encounter for cosmetic surgery Status: Acute Assessment and Plan: Doing well after bilateral mastopexy with galaflex and progressive tension abdominoplasty with suction lipectomy. Will discharge home. Today we had a lengthy discussion about the care. Activity limitations. What to monitor for. What is an emergency and when to dial 911 / proceed to the ER. This was a lengthy open ended conversation making sure they were well informed. Answered all their questions. They voiced a clear understanding. Will discharge home. Call with any questions or concerns in the meantime. Subjective Date/time seen: 12/09/23 06:28 Interval history: Yesterday postoperatively was slow to wake up from anesthesia so kept overnight. Now doing well after bilateral mastopexy with galaflex and progressive tension abdominoplasty with suction lipectomy.. Ambulating. Pain controlled. No nausea / vomiting. No fevers / chills. No shortness of breast. No chest pain. No calf tenderness. Review of Systems Review of Systems: All systems reviewed & are unremarkable except as noted in HPI and below Exam Narrative: Alert & Oriented NOD Respiratory unlabored Bilateral breasts healing well. No signs of infection. No hematoma. No seroma. Good color and capillary refill. Abdomen is healing well. No signs of infection. No hematoma. No seroma. Good color and capillary refill. Drain serosanguineous. Removed. No calf tenderness. Negative Sam's Objective Data Vital Signs Vital Signs: Vital Signs - 24 hr 12/08/23 07:00 12/08/23 14:50 12/08/23 15:05 Temperature 36.3 C L 36.2 C L Pulse Rate 72 109 H 105 H Respiratory Rate 16 20 20 Blood Pressure 146/71 H 106/63 114/72 Pulse Oximetry 97 99 98 Oxygen Delivery Room Air Simple Face Mask Simple Face Mask Oxygen Flow Rate 8 8 12/08/23 15:20 12/08/23 15:35 12/08/23 15:50 Temperature Pulse Rate 102 H 94 100 Respiratory Rate 16 12 16 Blood Pressure 113/78 98/69 L 106/69 Pulse Oximetry 94 97 97 Oxygen Delivery Room Air Nasal Cannula Nasal Cannula Oxygen Flow Rate 2 2 12/08/23 16:05 12/08/23 16:08 12/08/23 16:35 Temperature Pulse Rate 98 96 102 H Respiratory Rate 18 16 16 Blood Pressure 111/67 94/56 L 91/53 L Pulse Oximetry 94 Oxygen Delivery Room Air Oxygen Flow Rate 12/08/23 17:05 12/08/23 17:35 12/08/23 18:05 Temperature Pulse Rate 93 96 88 Respiratory Rate 16 16 16 Blood Pressure 97/47 L 98/51 L 90/49 L Pulse Oximetry Oxygen Delivery Oxygen Flow Rate 12/08/23 18:35 12/08/23 19:05 12/08/23 19:35 Temperature Pulse Rate 95 89 79 Respiratory Rate 16 16 16 Blood Pressure 114/52 L 129/55 L 108/76 Pulse Oximetry Oxygen Delivery Oxygen Flow Rate 12/08/23 20:10 12/08/23 20:25 12/08/23 20:55 Temperature 36.6 C 36.7 C 36.6 C Pulse Rate 98 90 94 Respiratory Rate 18 18 18 Blood Pressure 124/66 107/56 L 115/58 L Pulse Oximetry 94 95 95 Oxygen Delivery Oxygen Flow Rate 12/08/23 21:55 12/09/23 00:30 12/09/23 03:52 Temperature 36.6 C 37.2 C 37.3 C Pulse Rate 105 H 106 H 100 Respiratory Rate 16 16 18 Blood Pressure 105/54 L 97/46 L 112/53 L Pulse Oximetry 93 100 93 Oxygen Delivery Oxygen Flow Rate Intake/Output Intake/Output: Intake & Output 12/06/23 12/07/23 12/08/23 12/09/23 23:59 23:59 23:59 23:59 Intake Total 2550 1150 Output Total 40 240 Balance 2510 910 Meds/Results Medications: Active Medications Generic Name Dose Route Start Last Admin Trade Name Freq PRN Reason Stop Dose Admin Atorvastatin Calcium 20 mg 12/09/23 09:00 Atorvastatin 20 Mg Tablet PO DAILY KEVIN Carisoprodol 350 mg 12/09/23 00:00 12/09/23 06:01 Carisoprodol (*Crx) 350 Mg Tablet PO 350 mg Q6HR KEVIN Administration Diazepam 5 mg 12/08/23 18:40 Diazepam (*Crx) 5 Mg Tabl
--- NOTE | 2023-12-09 06:30 | P.DS_ITS ---
DS: Admitting Diagnosis Discharge Date 12/09/2023 Admitting Diagnosis Encounter for cosmetic surgery DS: Discharge Diagnosis Discharge Diagnosis (1) Encounter for cosmetic surgery: Code(s): Z41.1 - Encounter for cosmetic surgery Status: Acute DS: Summary Hospital Course Hospital Course: Underwent bilateral mastopexy with galaflex and progressive tension abdominoplasty with suction lipectomy. Was slow to wake from anesthesia. Today much improved. Will discharge home. Time Spent with Patient Time attestation: Total time spent providing and/or coordinating discharge services: Exam Narrative: Alert & Oriented NOD Respiratory unlabored Bilateral breasts healing well. No signs of infection. No hematoma. No seroma. Good color and capillary refill. Abdomen is healing well. No signs of infection. No hematoma. No seroma. Good color and capillary refill. No calf tenderness. Negative Sam's DS: Data Data Completed and Pending Labs on day of discharge: Labs from last 24 hours 12/08/23 12/08/23 12/08/23 20:41 06:38 06:07 Creatinine 0.80 Estim Creat Clear Calc 64 Estimated GFR > 60 POC Capillary Glucose 110 H Cotinine Negative Discharge Plan Discharge Patient Disposition: Home, Self-Care Discharge Instructions: POST OPERATIVE DISCHARGE INSTRUCTIONS HOLLAND ROSAS M.D. [facility] [address] [place] [address] * No driving for 24 hours after anesthesia and while you are taking pain medication. * Take all prescribed medication as directed * Diet as tolerated. * No lifting or activity that raises blood pressure for 48 hours. * Regular walking / ambulation. * May shower 24 hours after surgery. Once you shower do not take pain medication before showering as the combination of medication and heat may cause you to feel dizzy or pass out. * No pools or tubs for 2 weeks. * Slowly stand up straight as tolerated. * No straining or lifting more than 20 pounds. * If no bowel movement within 24 hours may use laxative. * Call with any questions or concerns. * Dressing Care: Continue abdominal binder / foam and surgical bra 23 hours per day. * Begin Lovenox 8:00 pm If you have any questions or concerns, please call the office . If it is after hours you will be directed to the manager control exchange. Shortness of breath, chest pain, or other medical emergency dial 911 / proceed to the Emergency Room. YOU TOOK OXYCODONE 5 MG AT 5:15 PM. YOU MAY TAKE YOUR NEXT NARCOTIC PAIN MED AFTER 11:15 PM TODAY. Stand Alone Forms: General Discharge Instructions Follow-up/Referrals: Holland Rosas MD [Physician] - Other (Tomorrow 12/09/2023) Discharge Orders: Discharge Order (Routine); Ordered 12/09/23 Ordered By: Holland Rosas Discharge Medications: Continued cetirizine 10 mg capsule 10 mg PO DAILY cholecalciferol (vitamin D3) 4,000 unit capsule 4,000 unit PO DAILY omega-3 fatty acids [Fish Oil Concentrate] 1,000 mg capsule 1,000 mg PO DAILY vitamin E mixed 400 unit capsule 400 unit PO DAILY vitamin B complex [B Complex-Vitamin B12] Tablet 1 tablet PO DAILY
--- NOTE | 2023-12-09 06:30 | PM.DS ---
DS: Admitting Diagnosis Discharge Date 12/09/2023 Admitting Diagnosis Encounter for cosmetic surgery DS: Discharge Diagnosis Discharge Diagnosis (1) Encounter for cosmetic surgery: Code(s): Z41.1 - Encounter for cosmetic surgery Status: Acute DS: Summary Hospital Course Hospital Course: Underwent bilateral mastopexy with galaflex and progressive tension abdominoplasty with suction lipectomy. Was slow to wake from anesthesia. Today much improved. Will discharge home. Time Spent with Patient Time attestation: Total time spent providing and/or coordinating discharge services: Exam Narrative: Alert & Oriented NOD Respiratory unlabored Bilateral breasts healing well. No signs of infection. No hematoma. No seroma. Good color and capillary refill. Abdomen is healing well. No signs of infection. No hematoma. No seroma. Good color and capillary refill. No calf tenderness. Negative Sam's DS: Data Data Completed and Pending Labs on day of discharge: Labs from last 24 hours 12/08/23 12/08/23 12/08/23 20:41 06:38 06:07 Creatinine 0.80 Estim Creat Clear Calc 64 Estimated GFR > 60 POC Capillary Glucose 110 H Cotinine Negative Discharge Plan Discharge Patient Disposition: Home, Self-Care Discharge Instructions: POST OPERATIVE DISCHARGE INSTRUCTIONS HOLLAND ROSAS M.D. [facility] [address] [place] [address] No driving for 24 hours after anesthesia and while you are taking pain medication. Take all prescribed medication as directed Diet as tolerated. No lifting or activity that raises blood pressure for 48 hours. Regular walking / ambulation. May shower 24 hours after surgery. Once you shower do not take pain medication before showering as the combination of medication and heat may cause you to feel dizzy or pass out. No pools or tubs for 2 weeks. Slowly stand up straight as tolerated. No straining or lifting more than 20 pounds. If no bowel movement within 24 hours may use laxative. Call with any questions or concerns. Dressing Care: Continue abdominal binder / foam and surgical bra 23 hours per day. Begin Lovenox 8:00 pm If you have any questions or concerns, please call the office . If it is after hours you will be directed to the hospital television rental clerk exchange. Shortness of breath, chest pain, or other medical emergency dial 911 / proceed to the Emergency Room. YOU TOOK OXYCODONE 5 MG AT 5:15 PM. YOU MAY TAKE YOUR NEXT NARCOTIC PAIN MED AFTER 11:15 PM TODAY. Stand Alone Forms: General Discharge Instructions Follow-up/Referrals: Holland Rosas MD [Physician] - Other (Tomorrow 12/09/2023) Discharge Orders: Discharge Order (Routine); Ordered 12/09/23 Ordered By: Holland Rosas Discharge Medications: Continued cetirizine 10 mg capsule 10 mg PO DAILY cholecalciferol (vitamin D3) 4,000 unit capsule 4,000 unit PO DAILY omega-3 fatty acids [Fish Oil Concentrate] 1,000 mg capsule 1,000 mg PO DAILY vitamin E mixed 400 unit capsule 400 unit PO DAILY vitamin B complex [B Complex-Vitamin B12] Tablet 1 tablet PO DAILY epinephrine 0.3 mg/0.3 mL auto-injector 0.3 mg IM ONCE Qty: 1 1RF Rx Instructions: as a single dose Lacto no.12-[id number]-SWP-larch 25B cell-25B cell-50 mg Capsule 1 cap PO DAILY fluticasone furoate-vilanterol [Breo Ellipta] 100-25 mcg/dose blister with device See Rx Instructions .ROUTE .COMPLEX 90 Days Qty: 180 3RF Dose Instruction: USE 1 INHALATION BY MOUTH DAILY ; RINSE AND SPIT Rx Instructions: USE 1 INHALATION BY MOUTH DAILY ; RINSE AND SPIT lansoprazole [Prevacid] 30 mg capsule,delayed release(DR/EC) 30 mg PO BID Qty: 180 3RF lisinopril 10 mg tablet 10 mg PO DAILY Qty: 14 0RF albuterol sulfate [ProAir HFA] 90 mcg/actuation HFA aerosol inhaler 1 - 2 inh INHALATION Q4
--- NOTE | 2023-12-09 09:25 | WPDANESPN ---
Anes - Prog Note Post-Op Date/Time: 12/09/23 09:25 Cardiovascular status: normal Respiratory status: normal Airway patency: baseline Mental status: baseline Post-Op hydration status: normal Vital Signs: Last Vital Signs Temp 37.3 C 12/09/23 03:52 Pulse 100 12/09/23 03:52 Resp 18 12/09/23 03:52 BP 112/53 L 12/09/23 03:52 Pulse Ox 93 12/09/23 03:52 O2 Del Method Room Air 12/08/23 16:05 O2 Flow Rate 2 12/08/23 15:50 Pain Score (VAS): 5/10 I/O: Intake & Output 12/08/23 12/09/23 12/09/23 23:59 07:59 15:59 Intake Total 0 1150 Output Total 40 240 Balance 20090 Laboratory Tests 12/08/23 20:41 12/08/23 20:41 Creatinine 0.80 Estim Creat Clear Calc 64 Estimated GFR > 60 Post-procedural complaints: none Patient Feedback: Patient satisfied with anesthetic care.
[2023-12-09] MEDS: PANTOPRAZOLE 40 MG TABLET PO (09:55)
[2023-12-09] MEDS: CHOLECALCIFEROL 1,000 UNITS TABLET 4000 UNITS PO (09:55)
[2023-12-09] MEDS: OMEGA 3 POLYUNSAT FATTY ACIDS 1 GM CAP PO (09:55)
[2023-12-09] MEDS: VITAMIN B COMPLEX CAPSULE 1 CAP PO (09:55)
[2023-12-09] MEDS: LORATADINE 10 MG TABLET PO (09:55)
[2023-12-09] MEDS: ESCITALOPRAM OXALATE 10 MG TABLET 40 MG PO (09:56)
[2023-12-09] MEDS: lisinopriL 10 MG TABLET PO (09:56)
[2023-12-09] MEDS: oxyCODONE/ACETAMINOPHEN (*CRX) 5-325 MG TABLET PO (09:56)
[2023-12-09] MEDS: CHOLECALCIFEROL 400 UNITS TABLET (VIT D) PO (09:57)
[2023-12-09] MEDS: DOCUSATE SODIUM 100 MG CAPSULE PO (09:57)
[2023-12-09] MEDS: ATORVASTATIN 20 MG TABLET PO (09:57)
[2023-12-09] MEDS: ENOXAPARIN 40 MG/0.4 ML SYRINGE SUB-Q (10:00)
== END 2023-12-09 12:45 | disposition home or self-care (01) ==
LOC: ANHSURGERY 17:17 → ANH3MED 20:19
PROVIDERS: PCP Family Medicine; Visit Provider Surgery Plastic and Reconstructive Surgery
PROC: (CPT 19316; principal; 2023-12-08 07:30)
PROC: (CPT 19316; 2023-12-08 07:30)
DX: Z41.1 Encounter for cosmetic surgery (principal); N64.81 Ptosis of breast; L57.4 Cutis laxa senilis; I10 Essential (primary) hypertension; E78.00 Pure hypercholesterolemia, unspecified; K21.9 Gastro-esophageal reflux disease without esophagitis; F32.A Depression, unspecified; J45.20 Mild intermittent asthma, uncomplicated; M81.0 Age-related osteoporosis without current pathological fracture; R73.03 Prediabetes; E66.9 Obesity, unspecified; Z68.36 Body mass index [BMI] 36.0-36.9, adult; Z79.82 Long term (current) use of aspirin; Z79.51 Long term (current) use of inhaled steroids
CPT/HCPCS: 19316; 15777 ×2; 15830; 15847; 15877; 80307; 82565; 82948; A9270; J0171; J0690; J1100; J1170; J1580; J1650; J2250; J2405; J2704; J3010; J7120

== ENCOUNTER 2024-01-04 17:46 | Outpatient (NON) | payer OTHER, SELFPAY | END 2024-01-04 17:47 | disposition home or self-care (01) | LOC: ANHLAB 17:47 | PROVIDERS: PCP Family Medicine; Visit Provider Surgery Plastic and Reconstructive Surgery | DX: L76.34 Postprocedural seroma of skin and subcutaneous tissue following other procedure (principal) | CPT/HCPCS: 87070; 87075; 87076; 87077; 87186; 87205 ==

== ENCOUNTER 2024-02-15 13:29 | Outpatient (CLI) | payer OTHER, SELFPAY ==
[2024-02-15 15:07] LABS: Hemoglobin 11.4 g/dL (12.0-15.0); Mean Corpuscular HGB Conc 30.8 g/dl (32-36); Mean Corpuscular Hemoglobin 26.7 pg (26-34); Mean Corpuscular Volume 86.7 fl (80-100); Mean Platelet Volume 9.3 fl (7.4-10.4); Platelet Count Result 293 k/mm3 (150-375); Red Blood Count 4.27 M/mm3 (4.2-5.4); Red Cell Distribution Width 14.5 % (11.5-14.5); White Blood Count 4.9 K/mm3 (4.5-10.0)
[2024-02-15 15:17] LABS: Anion Gap 5 mmol/L (4-12); Blood Urea Nitrogen 13 mg/dL (7-17); Calcium 9.5 mg/dL (8.4-10.2); Carbon Dioxide 27 mmol/L (22-30); Chloride 108 mmol/L (98-107); Estimated Glomerular Filt Rate > 60; Glucose 86 mg/dL (65-110); Potassium 3.9 mmol/L (3.4-5.0); Sodium 140 mmol/L (137-145)
[2024-02-15 15:20] LABS: Hemoglobin A1C 5.4 % (<5.7)
== END 2024-02-15 13:30 | disposition home or self-care (01) ==
PROVIDERS: PCP Family Medicine; Visit Provider Surgery Plastic and Reconstructive Surgery
DX: R60.9 Edema, unspecified (principal)
CPT/HCPCS: 36415; 80048; 83036; 85027

== ENCOUNTER 2024-05-27 13:36 | Outpatient (CLI) | payer OTHER, SELFPAY ==
--- NOTE | ~2024-05-27 | MM_ITS ---
EXAMINATION: MM screening favio BI w sharda HISTORY: Screening TECHNIQUE: Craniocaudal and mediolateral oblique 3-D tomosynthesis images were obtained and synthetic 2-D images were generated. CAD analysis was submitted and interpreted. COMPARISON: Comparison to multiple prior studies sequentially, with oldest reviewed study dated 01/28. BREAST PARENCHYMAL COMPOSITION: Not dense: There are scattered areas of fibroglandular density. FINDINGS: There are extensive areas of distortion and asymmetry in the lower central aspect of both b reasts consistent with interval breast reduction surgery. There is no evidence of suspicious mass, ca lcification, or architectural distortion to suggest malignancy in either breast. There has been no guadarrama spicious interval change. IMPRESSION: 1. No mammographic evidence of malignancy. 2. Recommend routine screening mammography in one year. BI-RADS Category 2: Benign finding(s). Reviewed, dictated and finalized at location B.
== END 2024-05-27 13:37 ==
LOC: MICIMG 13:37
PROVIDERS: PCP Family Medicine; Visit Provider Nurse Practitioner
DX: Z12.31 Encounter for screening mammogram for malignant neoplasm of breast (principal)
CPT/HCPCS: 77063; 77067

== ENCOUNTER 2025-06-07 14:30 | Outpatient (CLI) | payer MEDICARE, SELFPAY ==
--- NOTE | ~2025-06-07 | XR_ITS ---
[id number] 06/07/2025 15:05 Indication: Back pain Procedure: 4 view cervical spine Comparison: No prior studies for comparison. Findings: Reversal of cervical lordosis. There is degenerative anterolisthesis at C4-5. There is mult ilevel uncinate and facet hypertrophy. No acute fracture or traumatic malalignment. There is mild dis c narrowing at C5-6 and C6-7. Lung apices are normal. Odontoid process is normal. No prevertebral sof t tissue swelling. Impression: 1: Moderate cervical spondylosis with degenerative anterolisthesis at C4-5. Reviewed, dictated and finalized at location A. Impression: 1: Moderate cervical spondylosis with degenerative anterolisthesis at C4-5.
--- NOTE | ~2025-06-07 | XR_ITS ---
XR thoracic spine 2V 06/07/2025 15:05 Indication: Back pain Procedure: 3 views thoracic spine Comparison: No prior studies for comparison. Findings: There is levoscoliosis. Vertebral body heights are maintained. Mild wedge-shaped appearance to T12, likely chronic or developmental. No acute fracture, subluxation or dislocation. No paraspina l soft tissue abnormality. Pedicles intact. Impression: 1: Mild levoscoliosis. Reviewed, dictated and finalized at location A. Impression: 1: Mild levoscoliosis.
== END 2025-06-07 14:31 | disposition home or self-care (01) ==
PROVIDERS: PCP Family Medicine; Visit Provider Student in an Organized Health Care Education/Training Program
DX: M54.9 Dorsalgia, unspecified (principal); M47.892 Other spondylosis, cervical region
CPT/HCPCS: 72040; 72070